=== PATIENT | female | born 1990 | race American Indian/Alaskan Native ===

== ENCOUNTER 2016-08-01 22:19 | Emergency (ER) | payer MEDICAID ==
[2016-08-01 22:38] VITALS: BP 132/71
[2016-08-01 23:11] LABS: Basophils % (Auto) 0.2 % (0.0-1.8); Eosinophils % (Auto) 1.3 % (0.0-4.3); Hematocrit 36.4 % (30.3-42.9); Hemoglobin 11.7 gm/dl (10.1-14.3); Mean Corpuscular HGB Conc 32 % (30-34); Mean Corpuscular Volume 76 fl (79-97); Platelet Count 231 K/mm3 (140-440); Red Blood Count 4.77 M/mm3 (3.65-5.03); Red Cell Distribution Width 15.6 % (13.2-15.2); White Blood Count 10.6 K/mm3 (4.5-11.0)
[2016-08-01 23:22] LABS: Mean Corpuscular Hemoglobin 25 pg (28-32)
[2016-08-01 23:28] LABS: Alanine Aminotransferase 10 units/L (7-56); Albumin 4.4 g/dL (3.9-5); Albumin/Globulin Ratio 1.1 %; Alkaline Phosphatase 75 units/L (35-129); Anion Gap 19 mmol/L; BUN/Creatinine Ratio 23.75; Bilirubin,Total 0.2 mg/dL (0.1-1.2); Blood Urea Nitrogen 19 mg/dL (7-17); Calcium 9.6 mg/dL (8.4-10.2); Carbon Dioxide 25 mmol/L (22-30); Chloride 100.4 mmol/L (98-107); Glucose 87 mg/dL (65-100); Lipase 26 units/L (13-60); Sodium 140 mmol/L (137-145); Total Protein 8.5 g/dL (6.3-8.2)
[2016-08-02 00:10] LABS: Bilirubin,Urine NEG (Negative); Blood,Urine NEG (Negative); Ketones,Urine NEG (Negative); Leukocyte Esterase,Urine NEG (Negative); Nitrite,Urine NEG (Negative); Protein,Urine <15 mg/dL mg/dL (Negative); Urobilinogen,Urine < 2.0 mg/dL (<2.0)
[2016-08-02 00:11] LABS: Mucus,Urine 1+ /HPF; RBC,Urine < 1.0 /HPF (0.0-6.0)
--- NOTE | 2016-08-02 19:30 | ED Elopement Review ---
ED Pt Elopement review - Results review Lab results: Laboratory Tests 08/01/16 08/01/16 08/01/16 22:54 22:54 22:54 WBC 10.6 RBC 4.77 Hgb 11.7 Hct 36.4 MCV 76 L MCH 25 L MCHC 32 RDW 15.6 H Plt Count 231 Lymph % (Auto) 32.2 [place] % (Auto) 6.7 Eos % (Auto) 1.3 Baso % (Auto) 0.2 Lymph # 3.4 [place] # 0.7 Eos # 0.1 Baso # 0.0 Seg Neutrophils % 59.6 Seg Neutrophils # 6.3 Sodium 140 Potassium 4.0 Chloride 100.4 Carbon Dioxide 25 Anion Gap 19 BUN 19 H Creatinine 0.8 Estimated GFR > 60 BUN/Creatinine Ratio 23.75 Glucose 87 Calcium 9.6 Total Bilirubin 0.2 AST 15 ALT 10 Alkaline Phosphatase 75 Total Protein 8.5 H Albumin 4.4 Albumin/Globulin Ratio 1.1 Lipase 26 HCG, Qual Negative Urine Color Urine Turbidity Urine pH Ur Specific [place] Urine Protein Urine Glucose (UA) Urine Ketones Urine Blood Urine Nitrite Urine Bilirubin Urine Urobilinogen Ur Leukocyte Esterase Urine WBC (Auto) Urine RBC (Auto) U Epithel Cells (Auto) Urine Mucus 08/01/16 23:39 WBC RBC Hgb Hct MCV MCH MCHC RDW Plt Count Lymph % (Auto) [place] % (Auto) Eos % (Auto) Baso % (Auto) Lymph # [place] # Eos # Baso # Seg Neutrophils % Seg Neutrophils # Sodium Potassium Chloride Carbon Dioxide Anion Gap BUN Creatinine Estimated GFR BUN/Creatinine Ratio Glucose Calcium Total Bilirubin AST ALT Alkaline Phosphatase Total Protein Albumin Albumin/Globulin Ratio Lipase HCG, Qual Urine Color Yellow Urine Turbidity Clear Urine pH 5.0 Ur Specific [place] 1.029 Urine Protein <15 mg/dl Urine Glucose (UA) Neg Urine Ketones Neg Urine Blood Neg Urine Nitrite Neg Urine Bilirubin Neg Urine Urobilinogen < 2.0 Ur Leukocyte Esterase Neg Urine WBC (Auto) 1.0 Urine RBC (Auto) < 1.0 U Epithel Cells (Auto) 8.0 Urine Mucus 1+ - Call Back decision Pt Call Back Decision: No action required
== END 2016-08-02 05:40 | disposition left against medical advice (07) ==
LOC: ED 22:19
DX: R11.10 Vomiting, unspecified (principal); R42 Dizziness and giddiness; Z53.21 Procedure and treatment not carried out due to patient leaving prior to being seen by health care provider
CPT/HCPCS: 36415; 80053; 81001; 83690; 84703; 85025

== ENCOUNTER 2017-01-24 23:58 | Emergency (ER) | payer MEDICAID ==
[2017-01-25 00:37] VITALS: BP 110/64
[2017-01-25 06:19] LABS: Bacteria,Urine 2+ /HPF (Negative); Bilirubin,Urine NEG (Negative); Blood,Urine MOD (Negative); Ketones,Urine NEG (Negative); Leukocyte Esterase,Urine LG (Negative); Mucus,Urine 3+ /HPF; Nitrite,Urine NEG (Negative); Urobilinogen,Urine < 2.0 mg/dL (<2.0)
[2017-01-25] MEDS ORDERED: TYLENOL PO ONE (08:02)
[2017-01-25] MEDS ORDERED: AUGMENTIN 875 MG PO ONE (08:02)
--- NOTE | 2017-01-25 08:08 | Emergency Department Report ---
HPI - General Chief Complaint: Urogenital-Female Time Seen by Provider: 01/25/17 07:25 - HPI HPI: Patient is a 26-year-old female who presents to the ED approximately 27 weeks complaining of pain to the right side of her vaginal area. Patient states a couple of days ago she noticed some swelling of her vaginal area on the right side. Patient states vagina labia has painful since then. Patient states she started to notice of yellowish puslike discharge from the right labia yesterday. Patient states she is soaking in warm baths and that seems to make it a bit better. She states she follows up with [facility] out of [facility] for care. She reports good movement, no vaginal bleeding or leaking any palpitations with the She denies vaginal discharge, vaginal itching, dysuria, vaginal bleeding, leaking fluids, fever, abdominal pain, chest pain or any other problems ED Past Medical Hx - Past Medical History Previous Medical History?: Yes Hx GERD: Yes Hx Psychiatric Treatment: Yes (depression) - Surgical History Additional Surgical History: HEART SURGERY to repair hole in heart as child. - Social History Smoking Status: Never Smoker Substance Use Type: None - Medications Home Medications: Home Medications Medication Instructions Recorded Confirmed Last Taken Type Ondansetron [Zofran Oral Liq] 4 mg PO Q8H #50 ml 04/14/16 Unknown Rx Acetaminophen [Acetaminophen 8 650 mg PO TID #30 tablet.er 01/25/17 Unknown Rx Hour] Amoxicillin/K Clav Tab [Augmentin 1 each PO BID #14 tablet 01/25/17 Unknown Rx 875MG TAB] Fluconazole [Diflucan TAB] 150 mg PO ONCE #1 tablet 01/25/17 Unknown Rx ED Review of Systems ROS: Stated complaint: VAGINAL PAIN Other details as noted in HPI Constitutional: denies: chills, fever Eyes: denies: eye pain, eye discharge, vision change ENT: denies: ear pain, throat pain Respiratory: denies: cough, shortness of breath, wheezing Cardiovascular: denies: chest pain, palpitations Endocrine: no symptoms reported Gastrointestinal: denies: abdominal pain, nausea, diarrhea Genitourinary: denies: urgency, dysuria, discharge Musculoskeletal: denies: back pain, joint swelling, arthralgia Skin: denies: rash, lesions Neurological: denies: headache, weakness, paresthesias Psychiatric: denies: anxiety, depression Hematological/Lymphatic: denies: easy bleeding, easy bruising Physical Exam - Physical Exam Vital Signs: Vital Signs 01/25/17 00:33 Temperature 97.5 F L Pulse Rate 93 H Respiratory 17 Rate Blood Pressure 110/64 O2 Sat by Pulse 98 Oximetry Physical Exam: GENERAL: Alert and oriented x3, no apparent distress, Normal Gait, atraumatic. HEAD: Head is normocephalic and a-traumatic. EYES: Extra ocular muscles are intact. Pupils are equal, round, and reactive to light and accommodation. LUNGS: Symetrical with respiration, No wheezing, no rales or crackles, CTAB. HEART: S1, S2 present, regular rate and rhythm without murmur, no rubs, no gallops. Non tender to palpation ABDOMEN: No organomegaly was noted,Positive bowel sounds, soft, and non- distended. . Nontender to palpation on all Quadrants, NO CVA tenderness. GENITOURINARY: Right sided labial enlargement, erythematous, tender to palpation , training for an open abscess. Vaginal vault is without discharge. Cervix is of normal color without lesion. Cervical os is closed. No bleeding noted. Uterus is noted to be of normal size and nontender. No cervical motion tenderness. No masses are palpated. The adnexa are without masses or tenderness. EXTREMITIES/MUSCULOSKELETAL: No cyanosis, clubbing, rash, lesions or edema. Full ROM bilaterally. UE/LE Pulses 2+ bilaterally. NEUROLOGIC: The patient is cooperative with no focal neurologic deficits. Cranial nerves II through XII are grossly intact. Normal speech. PSYCHIATRIC: Mood is congruent with affect, denies suicidal or homicidal ideations. SKIN: Warm and dry, No lesions, No ulceration or induration present. ED Course Vital Signs 01/25/17 00:33 Temperature 97.5 F L Pulse Rate 93 H Respiratory 17 Rate Blood Pressure 110/64 O2 Sat by Pulse 98 Oximetry ED Medical Decision Making - Medical Decision Making 26-year-old female presents with labia cellulitis/urine tract infection ED course: Urinalysis ordered. Urinalysis positive for bacteria, yeast, white blood cells Discussed his findings with the patient. Discussed with patient to make sure she follows up. Patient is alert and asked 3 has no neuro deficit. Right labia had been drained. Nonfluctuant. Wound was cleaned and sterilely draped Discussed patient warm sitz bath daily, discussed follow-up with [facility] at [place] Vital signs are normal patient is in no acute distress. Patient understands all instructions given. Critical care attestation.: If time is entered above; I have spent that time in minutes in the direct care of this critically ill patient, excluding procedure time. ED Disposition Clinical Impression: Cellulitis of labia majora UTI (urinary tract infection) Qualifiers: Urinary tract infection type: acute cystitis Hematuria presence: with hematuria Qualified Code(s): N30.01 - Acute cystitis with hematuria Disposition: TO HOME OR SELFCARE Is pt being admited?: No Does the pt Need Aspirin: No Condition: Stable Instructions: Urinary Tract Infection in Women (ED), Abscess Incision and Drainage (ED), Vaginitis (ED), Abscess (ED), Heat Pack Application (ED) Additional Instructions: Follow-up with your [facility] doctor at [place] Continue sitz baths as discussed Take antibiotics is discussed Prescriptions: Acetaminophen [Acetaminophen 8 Hour] 650 mg PO TID #30 tablet.er Amoxicillin/K Clav Tab [Augmentin 875MG TAB] 1 each PO BID #14 tablet Fluconazole [Diflucan TAB] 150 mg PO ONCE #1 tablet Referrals: PRIMARY CARE, [Primary Care Provider] - 3-5 Days Forms: Work/School Release Form(ED) Time of Disposition: 08:16
== END 2017-01-25 08:32 | disposition home or self-care (01) ==
LOC: ED 23:58
DX: O23.592 Infection of other part of genital tract in pregnancy, second trimester (principal); N76.2 Acute vulvitis; Z3A.27 27 weeks gestation of pregnancy; N30.01 Acute cystitis with hematuria; K21.9 Gastro-esophageal reflux disease without esophagitis; F32.9 Major depressive disorder, single episode, unspecified
CPT/HCPCS: 81001; 99284

== ENCOUNTER 2018-11-03 05:59 | Observation (INO) | payer MEDICAID ==
[2018-11-03] MEDS ORDERED: LACTATED RINGERS 1,000 ML ONE (06:15)
[2018-11-03 08:01] LABS: Bilirubin,Urine NEG (Negative); Blood,Urine NEG (Negative); Color,Urine Yellow (Yellow); Protein,Urine <15 mg/dL mg/dL (Negative); Urobilinogen,Urine < 2.0 mg/dL (<2.0)
[2018-11-03] MEDS ORDERED: AMPICILLIN 2 GM in NACL 0.9% 50 ML IV ONE (08:15)
--- NOTE | 2018-11-03 08:33 | History and Physical Report ---
History of Present Illness Date of examination: 11/03/18 Date of admission: 11/03/2018 Chief complaint: low abdominal pains,x 3days, vomiting, diarrhea, frequent urination. History of present illness: by c/section currently at 32+4wks gestation.Poor historian but was able to say she had been going to void a lot within the recent past and each time she will move her bowels also. She had also been vomiting. Unable to say if she had fevers or chills. Past History Past Medical History: heart disease (had heart surgery during her childhood.) Past Surgical History: other (Umbilical herniorrhaphy, heart surgery.) Social history: denies: smoking, alcohol abuse - Obstetrical History Expected Date of Delivery: 12/24/18 Actual Gestation: 32 Week(s) 5 Day(s) : 2 Para: 1 Medications and Allergies Allergies Allergy/AdvReac Type Severity Reaction Status Date / Time No Known Allergies Allergy Verified 08/28/15 12:54 Home Medications Medication Instructions Recorded Confirmed Last Taken Type Ondansetron [Zofran Oral Liq] 4 mg PO Q8H #50 ml 04/14/16 Unknown Rx Acetaminophen [Acetaminophen 8 650 mg PO TID #30 tablet.er 01/25/17 Unknown Rx Hour] Amoxicillin/K Clav Tab [Augmentin 1 each PO BID #14 tablet 01/25/17 Unknown Rx 875MG TAB] Fluconazole [Diflucan TAB] 150 mg PO ONCE #1 tablet 01/25/17 Unknown Rx Active Meds: Active Medications Ampicillin Sodium 2 gm/ Sodium (Chloride) 50 mls @ 200 mls/hr IV ONCE ONE Stop: 11/03/18 08:29 Ampicillin Sodium (Ampicillin/Ns 1 Gm/50 Ml) 1 gm in 50 mls @ 100 mls/hr IV Q4HR [facility]; Protocol Review of Systems All systems: negative Gastrointestinal: vomiting, diarrhea Genitourinary: pelvic pain, no vaginal bleeding Rectal Exam: deferred Integumentary: no rash, no lesions - Vital Signs Vital signs: Vital Signs Pulse Pulse Ox 73 100 11/03/18 06:11 11/03/18 06:11 Temp Pulse Resp BP Pulse Ox 66 99/58 100 11/03/18 08:24 11/03/18 07:31 11/03/18 08:24 - Physical Exam Breasts: Positive: deferred Cardiovascular: Regular rate Lungs: Positive: Clear to auscultation Abdomen: Positive: normal appearance, distention Uterus: Positive: enlarged. Negative: tender Extremities: Positive: normal - Obstetrical FHR: category 1 Results All other labs normal. Assessment and Plan 32+5wks gestation, x1 c/section. Low abdominal pain. Plan: Admit for obs,stat US to r/o abruption, BPP, IV fluids, cbc,cmp urine cultures, gbs cultures, antibiotics, betamethasone. Consult to [facility] hospitalist for vomiting/diarrhea. - Patient Problems (1) Abdominal pain affecting , antepartum Current Visit: Yes Status: Acute (2) Previous delivery, antepartum Current Visit: Yes Status: Acute (3) Diarrhea Current Visit: Yes Status: Acute (4) Vomiting affecting , antepartum Current Visit: Yes Status: Acute
[2018-11-03] MEDS ORDERED: AMPICILLIN/NS 2 GM/100 ML 2 GM/100 ML BAG IV NR (08:40)
[2018-11-03 08:54] LABS: Albumin 2.9 g/dL (3.9-5); BUN/Creatinine Ratio 8; Blood Urea Nitrogen 5 mg/dL (7-17); Calcium 7.9 mg/dL (8.4-10.2); Hemolysis Index 98
[2018-11-03] MEDS ORDERED: LACTATED RINGERS 1,000 ML IV SCH (09:00)
[2018-11-03 09:23] LABS: Alanine Aminotransferase 9 units/L (7-56)
[2018-11-03 09:26] LABS: Basophils % (Auto) 0.5 % (0.0-1.8); Eosinophils # (Auto) 0.1 K/mm3 (0.0-0.4); Hemoglobin 9.7 gm/dl (10.1-14.3); Lymphocytes # (Auto) 2.3 K/mm3 (1.2-5.4); Lymphocytes % (Auto) 31.1 % (13.4-35.0); Mean Corpuscular HGB Conc 34 % (30-34); Mean Corpuscular Volume 80 fl (79-97); Monocytes # (Auto) 0.8 K/mm3 (0.0-0.8); Monocytes % (Auto) 10.5 % (0.0-7.3); Red Blood Count 3.65 M/mm3 (3.65-5.03); Red Cell Distribution Width 14.2 % (13.2-15.2)
[2018-11-03] MEDS ORDERED: AMPICILLIN/NS 2 GM/100 ML 2 GM/100 ML BAG IV ONE (09:30)
[2018-11-03] MEDS ORDERED: TYLENOL PO PRN (09:30)
[2018-11-03] MEDS ORDERED: COLACE PO PRN (09:30)
[2018-11-03] MEDS: PRENATAL VITAMIN PO SCH (09:31)
--- NOTE | 2018-11-03 09:34 | Ultrasound Report ---
ULTRASOUND BIOPHYSICAL PROFILE: History: Pain, unknown etiology Technique: Transabdominal ultrasound with Doppler interrogation. 2 - breathing movements 2 - movements 2 - posture and tone 2 - Qualitative amniotic fluid volume 8 - TOTAL SCORE OF POSSIBLE 8 Heart Rate (bpm)
--- NOTE | 2018-11-03 09:42 | Ultrasound Report ---
ULTRASOUND ABDOMEN COMPLETE: TECHNIQUE: Transabdominal ultrasound with color Doppler interrogation. HISTORY: labor, abdominal pain. COMPARISON: none. FINDINGS: LIVER: Normal. BILIARY SYSTEM: Normal. PANCREAS: Normal. SPLEEN: Normal. KIDNEYS: Normal. AORTA/IVC: Normal. ASCITES: None. IMPRESSION: Unremarkable exam.
[2018-11-03] MEDS ORDERED: DIFLUCAN PO ONE (09:51)
[2018-11-03 10:29] LABS: Platelet Count 173 K/mm3 (140-440)
--- NOTE | 2018-11-03 11:45 | Consultation ---
History of Present Illness Consult date: 11/03/18 Requesting physician: KANDICE WU Reason for consult: contractions History of present illness: o Date of Consult: November 03, 2018 o Patient Name: KATHLEEN BARBER (: 89 ) o Consulting Physician: Lucio Delarosa M.D. o Admitting Physicians: Dr. Javier reyes Admission Diagnosis: IUP at 32 weeks. Rule out urinary tract infection. Rule out labor As you are aware, this is a 28 year old para 1001 at EGA= 32.5 weeks (based on an AKIN of 12/25/18) gestation who was admitted to [facility] with contractions and suspected labor. The patient presented with abdominal pain. Her UTI was suggestive of a possible urinary tract infection. At the time of my evaluation, the patient denied vaginal bleeding. Since admission, uterine tocodynametry has been significant for mild episodes of irritability and mild contractile activity at irregular intervals. l PAST OB HISTORY: o See full report in patients chart o 2017: CS at term. BW: 5 pounds. l PAST MEDICAL HISTORY: DVT in 2017. l Physical Examination: l See hospital chart for details l General exam: WDWN, NAD. l Abdominal exam: soft, non-tender, non-distended, bowel sounds: normal. l NST reactive, no decelerations, (+) irregular uterine activity l Cervico-vaginal exam: DEFERRED. See notes in patient's chart. ULTRASOUND: Pending. Past History Past Medical History: heart disease (had heart surgery during her childhood.) Past Surgical History: other (Umbilical herniorrhaphy, heart surgery.) - Obstetrical History : 2 Medications and Allergies Allergies Allergy/AdvReac Type Severity Reaction Status Date / Time No Known Allergies Allergy Verified 08/28/15 12:54 Home Medications Medication Instructions Recorded Confirmed Last Taken Type Ondansetron [Zofran Oral Liq] 4 mg PO Q8H #50 ml 04/14/16 Unknown Rx Acetaminophen [Acetaminophen 8 650 mg PO TID #30 tablet.er 01/25/17 Unknown Rx Hour] Amoxicillin/K Clav Tab [Augmentin 1 each PO BID #14 tablet 01/25/17 Unknown Rx 875MG TAB] Fluconazole [Diflucan TAB] 150 mg PO ONCE #1 tablet 01/25/17 Unknown Rx Active Meds: Active Medications Acetaminophen (Tylenol) 650 mg PO Q4H PRN PRN Reason: Pain MILD(1-3)/Fever >100.5/MCGILL Docusate Sodium (Colace) 100 mg PO Q12H PRN PRN Reason: Constipation Ampicillin Sodium (Ampicillin/Ns 1 Gm/50 Ml) 1 gm in 50 mls @ 100 mls/hr IV Q4H [facility]; Protocol Lactated Ringer's (Lactated Ringers) 1,000 mls @ 125 mls/hr IV DIRECT [facility] Multivitamins/Iron/Calcium ( Vitamin) 1 each PO QDAY [facility] Last Admin: 11/03/18 09:31 Dose: Not Given Documented by: - Vital Signs Vital signs: Vital Signs Pulse Pulse Ox 73 100 11/03/18 06:11 11/03/18 06:11 Temp Pulse Resp BP Pulse Ox 78 99/58 98 11/03/18 10:04 11/03/18 07:31 11/03/18 10:04 Results Result Diagrams: 11/03/18 08:15 11/03/18 08:15 Abnormal lab results 11/03/18 11/03/18 Range/Units 08:15 08:15 Hgb 9.7 L (10.1-14.3) gm/dl Hct 29.0 L (30.3-42.9) % MCH 27 L (28-32) pg [place] % (Auto) 10.5 H (0.0-7.3) % BUN 5 L (7-17) mg/dL Creatinine 0.6 L (0.7-1.2) mg/dL Calcium 7.9 L (8.4-10.2) mg/dL Albumin 2.9 L (3.9-5) g/dL All other labs normal. Assessment and Plan ASSESSMENT: * IUP at 32.5 weeks gestation admitted due cervical shortening, dilation and symptoms of labor. * Rule out UTI * Currently, an analysis of this patients symptoms, tocodynametry, recent history place her at increased risk for spontaneous in the near future. RECOMMENDATIONS: * We are in agreement with close observation to rule out progressive contractions or early labor. * Follow-up the results of her urinalysis and treat with antibiotics if indicated. * Neonatology aware. * Given the current gestational age you may wish to consider steroids to enhance lung maturity. * We would give magnesium sulfate to obtain steroids for lung maturation. * I would, however, discontinue Procardia and prepare for if this patient shows continued contractions and/or cervical change while on Procardia. * Please obtain testing to rule out the possibility of a urinary tract infection * Kindly contact [facility] as needed if her clinical status changes. Thank you for allowing us to participate in the care of this patient. We look forward to the opportunity to assist in her continued management. If you have any questions, we may be reached at [phone]. Lucio Delarosa MD, FACOG
[2018-11-03] MEDS: AMPICILLIN/NS 1 GM/50 ML 1 GM/50 ML BAG IV SCH ×2 (13:20→17:14)
--- NOTE | 2018-11-03 15:01 | Consultation ---
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 She also has thrombus on the VSD patch seen by echocardiogram in October 2016. Patient usually receives her care at [facility] and has been recommended for lifelong anticoagulation. Patient presented with complaints of low abdominal pain, admitted for further evaluation. Patient denies chest pain, unusual shortness of breath and she has no lower extremity edema. there is no ECG available for review. A cardiac consultation has been requested due to history of congenital heart disease. Past History Social history: denies: smoking, alcohol abuse Medications and Allergies Allergies Allergy/AdvReac Type Severity Reaction Status Date / Time No Known Allergies Allergy Verified 08/28/15 12:54 Home Medications Medication Instructions Recorded Confirmed Last Taken Type Ondansetron [Zofran Oral Liq] 4 mg PO Q8H #50 ml 04/14/16 Unknown Rx Acetaminophen [Acetaminophen 8 650 mg PO TID #30 tablet.er 01/25/17 Unknown Rx Hour] Amoxicillin/K Clav Tab [Augmentin 1 each PO BID #14 tablet 01/25/17 Unknown Rx 875MG TAB] Fluconazole [Diflucan TAB] 150 mg PO ONCE #1 tablet 01/25/17 Unknown Rx Active Meds: Active Medications Acetaminophen (Tylenol) 650 mg PO Q4H PRN PRN Reason: Pain MILD(1-3)/Fever >100.5/MCGILL Docusate Sodium (Colace) 100 mg PO Q12H PRN PRN Reason: Constipation Ampicillin Sodium (Ampicillin/Ns 1 Gm/50 Ml) 1 gm in 50 mls @ 100 mls/hr IV Q4H [facility]; Protocol Last Admin: 11/03/18 13:20 Dose: 100 mls/hr Documented by: Lactated Ringer's (Lactated Ringers) 1,000 mls @ 125 mls/hr IV DIRECT [facility] Last Admin: 11/03/18 12:15 Dose: 125 mls/hr Documented by: Multivitamins/Iron/Calcium ( Vitamin) 1 each PO QDAY [facility] Last Admin: 11/03/18 09:31 Dose: Not Given Documented by: Physical Examination Vital Signs Pulse Pulse Ox 73 100 11/03/18 06:11 11/03/18 06:11 General appearance: no acute distress HEENT: Positive: PERRL Neck: Positive: trachea midline Cardiac: Positive: Reg Rate and Rhythm Lungs: Positive: Decreased Breath Sounds Neuro: Positive: Grossly Intact Extremities: Absent: edema Results 11/03/18 08:15 11/03/18 08:15 Cardiac Enzymes 11/03/18 Range/Units 08:15 AST 20 (5-40) units/L CBC 11/03/18 Range/Units 08:15 WBC 7.4 (4.5-11.0) K/mm3 RBC 3.65 (3.65-5.03) M/mm3 Hgb 9.7 L (10.1-14.3) gm/dl Hct 29.0 L (30.3-42.9) % Plt Count 173 (140-440) K/mm3 Lymph # 2.3 (1.2-5.4) K/mm3 [place] # 0.8 (0.0-0.8) K/mm3 Eos # 0.1 (0.0-0.4) K/mm3 Baso # 0.0 (0.0-0.1) K/mm3 Comprehensive Metabolic Panel 11/03/18 Range/Units 08:15 Sodium 137 (137-145) mmol/L Potassium 4.0 (3.6-5.0) mmol/L Chloride 103.3 (98-107) mmol/L Carbon Dioxide 22 (22-30) mmol/L BUN 5 L (7-17) mg/dL Creatinine 0.6 L (0.7-1.2) mg/dL Glucose 75 (65-100) mg/dL Calcium 7.9 L (8.4-10.2) mg/dL AST 20 (5-40) units/L ALT 9 (7-56) units/L Alkaline Phosphatase 63 (35-129) units/L Total Protein 6.4 (6.3-8.2) g/dL Albumin 2.9 L (3.9-5) g/dL Assessment and Plan Abdominal pain Congenital heart disease TOF repair in 1997 while living in [place] Hx of VSD thrombus seen on echo at [place] 10/2016 recommended for lifelong anticoagulation 32 weeks gestation Plan: We will obtain a 12 lead ECG for review. Otherwise, conservative cardiac management.
[2018-11-03 19:20] LABS: Amphetamine Screen,Urine PRESUMPTIVE NEGATIVE; Benzodiazepines Screen,Urine PRESUMPTIVE NEGATIVE; Cannabinoid Screen,Urine PRESUMPTIVE NEGATIVE; Cocaine Screen,Urine PRESUMPTIVE NEGATIVE; Methadone Screen,Urine PRESUMPTIVE NEGATIVE; Opiate Screen,Urine PRESUMPTIVE NEGATIVE
[2018-11-04] MEDS: AMPICILLIN/NS 1 GM/50 ML 1 GM/50 ML BAG IV SCH ×4 (00:33→10:52)
--- NOTE | 2018-11-04 07:20 | Consultation ---
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 She also has thrombus on the VSD patch seen by echocardiogram in October 2016. Patient usually receives her care at [facility] and has been recommended lifelong anticoagulation. Patient presented with complaints of low abdominal pain, admitted for further evaluation. Patient denies chest pain, unusual shortness of breath and she has no lower extremity edema. Past History Past Medical History: other (Tetralogy og Fallot,VSD patch thrombus) Past Surgical History: Other (TOF repair) Social history: denies: smoking, alcohol abuse Family history: hypertension Medications and Allergies Allergies Allergy/AdvReac Type Severity Reaction Status Date / Time No Known Allergies Allergy Verified 08/28/15 12:54 Home Medications Medication Instructions Recorded Confirmed Last Taken Type Ondansetron [Zofran Oral Liq] 4 mg PO Q8H #50 ml 04/14/16 11/03/18 1 Month Ago Rx ~10/03/18 Acetaminophen [Acetaminophen 8 650 mg PO TID #30 tablet.er 01/25/17 11/03/18 Unknown Rx Hour] Amoxicillin/K Clav Tab [Augmentin 1 each PO BID #14 tablet 01/25/17 11/03/18 Unknown Rx 875MG TAB] Fluconazole [Diflucan TAB] 150 mg PO ONCE #1 tablet 01/25/17 11/03/18 Unknown Rx Enoxaparin [Lovenox] 100 mg SQ Q12HR 11/03/18 11/03/18 1 Month Ago History ~10/03/18 No.144/Folic Acid [[facility] 1 tab PO QDAY 11/03/18 11/03/18 1 Month Ago History Gummies] ~10/03/18 Active Meds: Active Medications Acetaminophen (Tylenol) 650 mg PO Q4H PRN PRN Reason: Pain MILD(1-3)/Fever >100.5/MCGILL Docusate Sodium (Colace) 100 mg PO Q12H PRN PRN Reason: Constipation Ampicillin Sodium (Ampicillin/Ns 1 Gm/50 Ml) 1 gm in 50 mls @ 100 mls/hr IV Q4H [facility]; Protocol Last Admin: 11/04/18 05:40 Dose: 100 mls/hr Documented by: Lactated Ringer's (Lactated Ringers) 1,000 mls @ 125 mls/hr IV DIRECT [facility] Last Admin: 11/03/18 12:15 Dose: 125 mls/hr Documented by: Multivitamins/Iron/Calcium ( Vitamin) 1 each PO QDAY [facility] Last Admin: 11/03/18 09:31 Dose: Not Given Documented by: Review of Systems All systems: negative Gastrointestinal: abdominal pain Exam - Constitutional Vitals: Temp Pulse Resp BP Pulse Ox 97.9 F 72 18 112/68 99 11/03/18 20:45 11/03/18 20:45 11/03/18 20:45 11/03/18 20:45 11/03/18 16:01 General appearance: Present: no acute distress, well-nourished - EENT Eyes: Present: PERRL ENT: hearing intact, clear oral mucosa - Neck Neck: Present: supple, normal ROM - Respiratory Respiratory effort: normal Respiratory: bilateral: CTA - Cardiovascular Heart rate: 78 Rhythm: regular Heart Sounds: Present: S1 & S2. Absent: rub, click - Extremities Extremities: no ischemia, pulses intact, pulses symmetrical, No edema Peripheral Pulses: within normal limits - Abdominal General gastrointestinal: Present: soft, non-tender, non-distended, normal bowel sounds Female genitourinary: Present: normal - Integumentary Integumentary: Present: clear, warm, dry - Musculoskeletal Musculoskeletal: gait normal, strength equal bilaterally - Psychiatric Psychiatric: appropriate mood/affect, intact judgment & insight - Neurologic Neurologic: CNII-XII intact, moves all extremities Results - Labs CBC & Chem 7: 11/03/18 08:15 11/03/18 08:15 Labs: Abnormal lab results 11/03/18 11/03/18 Range/Units 08:15 08:15 Hgb 9.7 L (10.1-14.3) gm/dl Hct 29.0 L (30.3-42.9) % MCH 27 L (28-32) pg [place] % (Auto) 10.5 H (0.0-7.3) % BUN 5 L (7-17) mg/dL Creatinine 0.6 L (0.7-1.2) mg/dL Calcium 7.9 L (8.4-10.2) mg/dL Albumin 2.9 L (3.9-5) g/dL ULTRASOUND BIOPHYSICAL PROFILE: History: Pain, unknown etiology Technique: Transabdominal ultrasound with Doppler interrogation. 2 - breathing movements 2 - movements 2 - posture and tone 2 - Qualitative amniotic fluid volume 8 - TOTAL SCORE OF POSSIBLE 8 Heart Rate (bpm) Assessment and Plan - Patient Problems (1) Abdominal pain affecting , antepartum Current Visit: Yes Status: Acute Plan to address problem: Non specific Symptomatic treatment Sec to Nothing Surgical/Medical (2) TOF (tetralogy of Fallot) Current Visit: Yes Status: Chronic Plan to address problem: Patient on Lovenox lifelong Follow up with [place] Will sign off Call us if necessary
--- NOTE | 2018-11-04 09:34 | Progress Note ---
Assessment and Plan - Patient Problems (1) Abdominal pain affecting , antepartum Current Visit: Yes Status: Acute Plan to address problem: Patient's US report did not include a categorical statement on the integrity of the placenta and uterine wall: Either new studies needed or prior images reviewed to see if these questions can be answered. When patient is without any more complaints, I will reconsider discharge home. (2) Previous delivery, antepartum Current Visit: Yes Status: Acute (3) Diarrhea Current Visit: Yes Status: Acute (4) Vomiting affecting , antepartum Current Visit: Yes Status: Acute (5) History of thrombosis Current Visit: Yes Status: Acute Plan to address problem: Patient needs to restart her lovenox. Cardiology will be recontacted Subjective - Subjective Date of service: 11/04/18 Principal diagnosis: abdominal pain affecting Interval history: by c/section currently at 32+4wks gestation.Poor historian but was able to say she had been going to void a lot within the recent past and each time she will move her bowels also. She had also been vomiting. Unable to say if she had fevers or chills. Patient reports: movement normal, no new complaints (patient wanting to go home. says she was feeling better. Feels hungry and declined liquid diet. 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 She had a thrombotic episode for which she was ordered to be on lovenox. patient stopped her lovenox october 12, 2018- on her own. Breasts: deferred Lungs: Clear to auscultation Abdomen: Present: normal appearance, soft, distention, normal bowel sounds Uterus: Present: fundal height above umbilicus (soft.) FHR: category 1 Uterine Contraction Pattern: Absent - Labs Labs: Abnormal Labs 11/03/18 11/03/18 08:15 08:15 Hgb 9.7 L Hct 29.0 L MCH 27 L Blair % (Auto) 10.5 H BUN 5 L Creatinine 0.6 L Calcium 7.9 L Albumin 2.9 L Laboratory Results - last 24 hr 11/03/18 11/03/18 11/03/18 08:15 08:15 15:34 Plt Count 173 Urine Opiates Screen Presumptive negative Urine Methadone Screen Presumptive negative Ur Barbiturates Screen Presumptive negative Ur Phencyclidine Scrn Presumptive negative Ur Amphetamines Screen Presumptive negative U Benzodiazepines Scrn Presumptive negative Urine Cocaine Screen Presumptive negative U Marijuana (THC) Screen Presumptive negative Drugs of Abuse Note Disclamer Blood Type O POSITIVE Antibody Screen Negative
[2018-11-04] MEDS: PRENATAL VITAMIN PO SCH (10:52)
[2018-11-04 11:30] VITALS: BP 125/72
[2018-11-04] MEDS ORDERED: LOVENOX SUB-Q SCH (12:00)
--- NOTE | 2018-11-04 12:03 | Ultrasound Report ---
ULTRASOUND OB LIMITED History: Abdominal pain, evaluate placenta Technique: Transabdominal ultrasound with Doppler interrogation. Gestation: Single Position: Cephalic Placenta: Anterior Placental Grade: 2 No evidence for abruption. Heart Rate: 147 BPM
== END 2018-11-04 12:00 | disposition home or self-care (01) ==
LOC: TRG 05:59 → LD 06:01 → TRG 09:25 → LD 09:26
PROVIDERS: ADMIT Obstetrics & Gynecology; ATTEND Obstetrics & Gynecology
DX: O26.893 Other specified pregnancy related conditions, third trimester (principal); R10.30 Lower abdominal pain, unspecified; O21.2 Late vomiting of pregnancy; R35.0 Frequency of micturition; R19.7 Diarrhea, unspecified; Z3A.32 32 weeks gestation of pregnancy
CPT/HCPCS: 36415; 76700; 76815; 76819; 80053; 80307; 81001; 85025; 86850; 86900; 86901; 87086; 87116; 93005; 93010; 96365; 96366; 96372; G0378; J0290; J1650; J7120; 96361

== ENCOUNTER 2018-11-24 22:04 | Emergency (ER) | payer MEDICAID ==
[2018-11-24] MEDS ORDERED: KEFLEX PO ONE (23:05)
[2018-11-24] MEDS ORDERED: ZOFRAN ODT PO ONE (23:05)
[2018-11-24] MEDS ORDERED: TYLENOL PO ONE (23:05)
--- NOTE | 2018-11-24 23:10 | Emergency Department Report ---
Abscess Boil HPI - HPI Chief Complaint: Skin/Abscess/Foreign Body Stated Complaint: BOIL Time Seen by Provider: 11/24/18 22:50 Duration: >1 Week Location: Abdomen (suprapubic) History: Yes Pain, Yes Purulent Drainage, No Fever, No Numbness, No Foreign Body, No Previous History, No Insect Bite HPI: Patient is a A0 and 28-year-old -[place] female who is appro ximately 37 weeks gestation and who presents to the ED with complaint of painful swelling erythematous macular rash on suprapubic area with thick purulent discharge for the last 5 days. Patient states that this pain and the swelling as well as decided has been persistent. Patient denies fever, chills, nausea, vomiting, vaginal bleeding, abdominal pain, traumatic injury or dizziness. Home Medications: Home Medications Medication Instructions Recorded Confirmed Last Taken Enoxaparin [Lovenox] 100 mg SQ Q12HR 11/03/18 11/03/18 1 Month Ago ~10/03/18 No.144/Folic Acid [[facility] 1 tab PO QDAY 11/03/18 11/03/18 1 Month Ago Gummies] ~10/03/18 Previous Rx's Medication Instructions Recorded Last Taken Type Ondansetron [Zofran Oral Liq] 4 mg PO Q8H #50 ml 04/14/16 1 Month Ago Rx ~10/03/18 Acetaminophen [Acetaminophen 8 650 mg PO TID #30 tablet.er 01/25/17 Unknown Rx Hour] Amoxicillin/K Clav Tab [Augmentin 1 each PO BID #14 tablet 01/25/17 Unknown Rx 875MG TAB] Fluconazole [Diflucan TAB] 150 mg PO ONCE #1 tablet 01/25/17 Unknown Rx Acetaminophen [Tylenol] 500 mg PO Q6HR #20 tablet 11/24/18 Unknown Rx cephALEXin [Keflex] 500 mg PO Q6HR #40 capsule 11/24/18 Unknown Rx Allergies/Adverse Reactions: Allergies Allergy/AdvReac Type Severity Reaction Status Date / Time No Known Allergies Allergy Verified 08/28/15 12:54 ED Review of Systems ROS: Stated complaint: BOIL Other details as noted in HPI Constitutional: denies: chills, fever Eyes: denies: eye pain, eye discharge, vision change ENT: denies: ear pain, throat pain Respiratory: denies: cough, shortness of breath, wheezing Cardiovascular: denies: chest pain, palpitations Endocrine: no symptoms reported Gastrointestinal: denies: abdominal pain, nausea, diarrhea Genitourinary: denies: urgency, dysuria, discharge Musculoskeletal: denies: back pain, joint swelling, arthralgia Skin: rash (swollen painful erythematous rash on suprapubic area with purulent discharge), change in color. denies: lesions Neurological: denies: headache, weakness, paresthesias Psychiatric: denies: anxiety, depression Hematological/Lymphatic: denies: easy bleeding, easy bruising ED Past Medical Hx - Past Medical History Previous Medical History?: Yes Hx Hypertension: No Hx CVA: No Hx Heart Attack/AMI: No Hx Congestive Heart Failure: No Hx Diabetes: No Hx Deep Vein Thrombosis: No Hx Pulmonary Embolism: No Hx GERD: Yes Hx Liver Disease: No Hx Renal Disease: No Hx of Cancer: No Hx Sickle Cell Disease: No Hx Arthritis: No Hx Headaches / Migraines: No Hx Seizures: No Hx Kidney Stones: No Hx Psychiatric Treatment: Yes (depression) Hx Asthma: No Hx COPD: No Hx Tuberculosis: No Hx Dementia: No Hx HIV: No - Surgical History Past Surgical History?: Yes Hx Coronary Stent: No Hx Open Heart Surgery: No Hx Pacemaker: No Hx Internal Defibrillator: No Hx Cholecystectomy: No Hx Appendectomy: No Hx Breast Surgery: No Additional Surgical History: HEART SURGERY to repair hole in heart as child. - Social History Smoking Status: Former Smoker Substance Use Type: None - Medications Home Medications: Home Medications Medication Instructions Recorded Confirmed Last Taken Type Ondansetron [Zofran Oral Liq] 4 mg PO Q8H #50 ml 04/14/16 11/03/18 1 Month Ago Rx ~10/03/18 Acetaminophen [Acetaminophen 8 650 mg PO TID #30 tablet.er 01/25/17 11/03/18 Unknown Rx Hour] Amoxicillin/K Clav Tab [Augmentin 1 each PO BID #14 tablet 01/25/17 11/03/18 Unknown Rx 875MG TAB] Fluconazole [Diflucan TAB] 150 mg PO ONCE #1 tablet 01/25/17 11/03/18 Unknown Rx Enoxaparin [Lovenox] 100 mg SQ Q12HR 11/03/18 11/03/18 1 Month Ago History ~10/03/18 No.144/Folic Acid [[facility] 1 tab PO QDAY 11/03/18 11/03/18 1 Month Ago History Gummies] ~10/03/18 Acetaminophen [Tylenol] 500 mg PO Q6HR #20 tablet 11/24/18 Unknown Rx cephALEXin [Keflex] 500 mg PO Q6HR #40 capsule 11/24/18 Unknown Rx ED Abscess Boil Physical Exam - Exam General: Vital signs noted. No distress. Alert and acting appropriately. Front/Back of Body, Lg (Color): 1 - Swollen erythematous tender rash with purulent discharge Size: 2 cm Exam: Yes Tenderness, Yes Surrounding Cellulites/Erythema, Yes Normal Neurologic Exam, Yes Normal Circulation, No Fluctuance, No Lymphangitis, No Heart Murmur Exam: Physical exam is characterized by swollen and erythematous maculopapular rash with purulent discharge on suprapubic area with tenderness. The rest of the physical exam is unremarkable. ED Course Vital Signs 11/24/18 22:36 Temperature 98.2 F Pulse Rate 83 Respiratory 18 Rate Blood Pressure 106/50 Blood Pressure 106/50 [Right] O2 Sat by Pulse 99 Oximetry - Reevaluation(s) Reevaluation #1: 11/24/18 23:10 Patient is alert and oriented 3 and is not in distress. Patient was treated for pain and given initial oral antibiotics in the ED. Neurovascular and thoroughly with normal saline and dressed appropriately. Patient is sent home on antibiotics and Tylenol and advised to follow-up with [employer] physician in 5-7 days for reevaluation or return to the ED immediately if symptoms get worse. Critical care attestation.: If time is entered above; I have spent that time in minutes in the direct care of this critically ill patient, excluding procedure time. ED Medical Decision Making - Medical Decision Making Patient is alert and oriented 3 and is not in distress. Patient was treated for pain and given initial oral antibiotics in the ED. Neurovascular and thoroughly with normal saline and dressed appropriately. Patient is sent home on antibiotics and Tylenol and advised to follow-up with [employer] physician in 5-7 days for reevaluation or return to the ED immediately if symptoms get worse. - Differential Diagnosis Cellulitis of suprapubic area; Abdominal wall abscess, insect bite ED Disposition Clinical Impression: Abdominal wall cellulitis, Acute folliculitis Disposition: TO HOME OR SELFCARE Is pt being admited?: No Does the pt Need Aspirin: No Condition: Stable Instructions: Cellulitis (ED), Folliculitis (ED) Additional Instructions: Take medications with food, drink plenty of fluids and follow-up with your primary care physician in 7-10 days for reevaluation. Return to the ED immediately if symptoms get worse. Prescriptions: Acetaminophen [Tylenol] 500 mg PO Q6HR #20 tablet cephALEXin [Keflex] 500 mg PO Q6HR #40 capsule Referrals: [facility] [Outside] - 3-5 Days Time of Disposition: 23:12 Print Language: MARSHALLESE
[2018-11-24 23:35] VITALS: BP 109/63
== END 2018-11-24 23:53 | disposition home or self-care (01) ==
LOC: ED 22:04
DX: O26.893 Other specified pregnancy related conditions, third trimester (principal); L03.311 Cellulitis of abdominal wall; L73.9 Follicular disorder, unspecified; K21.9 Gastro-esophageal reflux disease without esophagitis; F32.9 Major depressive disorder, single episode, unspecified; Z87.891 Personal history of nicotine dependence; Z3A.37 37 weeks gestation of pregnancy
CPT/HCPCS: Q0162

== ENCOUNTER 2019-11-24 18:52 | Emergency (ER) | payer SELFPAY ==
[2019-11-24 19:32] VITALS: BP 120/80
[2019-11-24] MEDS ORDERED: IBUPROFEN 800 MG TAB PO ONE (22:51)
[2019-11-24] MEDS ORDERED: CLINDAMYCIN 300 MG CAP PO ONE (22:51)
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
== END 2019-11-24 23:18 | disposition home or self-care (01) ==
LOC: ED 18:52
DX: R59.1 Generalized enlarged lymph nodes (principal); M27.2 Inflammatory conditions of jaws
CPT/HCPCS: 99282

== ENCOUNTER 2020-08-12 17:17 | Emergency (ER) | payer MEDICAID ==
[2020-08-12] MEDS ORDERED: HYDROcodone/ACETAMINOPHEN 5-325 MG TAB PO ONE ×2 (19:00→21:02)
[2020-08-12 20:22] LABS: Alanine Aminotransferase 12 units/L (7-56); Blood Urea Nitrogen 9 mg/dL (7-17); Calcium 9.3 mg/dL (8.4-10.2); Hemolysis Index 306
[2020-08-12 20:29] LABS: BUN/Creatinine Ratio 13
[2020-08-12 20:31] LABS: Hematocrit 37.9 % (30.3-42.9); Hemoglobin 12.2 gm/dl (10.1-14.3); Mean Corpuscular HGB Conc 32 % (30-34); Mean Corpuscular Volume 77 fl (79-97); Platelet Count 175 K/mm3 (140-440); Red Blood Count 4.95 M/mm3 (3.65-5.03); Red Cell Distribution Width 16.7 % (13.2-15.2)
--- NOTE | 2020-08-12 20:36 | Emergency Department Report ---
ED General Adult HPI - General Chief complaint: Chest Pain Stated complaint: CHEST PAIN Time Seen by Provider: 08/12/20 18:59 Source: patient Mode of arrival: Ambulatory Limitations: No Limitations - History of Present Illness Initial comments: Patient is a 30-year-old female presents emergency room with complaints of chest pain that began 3 days ago. Patient states that she has a history of a hole in her heart which she reports she had repair during childhood with open heart surgery. Patient states that she has a keloid overlying the scar. She states over the last few days this region has become painful, erythematous. She denies any abrasions or being bit by anything. She denies any fever, nausea, vomiting, diarrhea, cough, shortness of breath, drainage. No other past medical history. No allergies to medications. - Related Data Home Medications Medication Instructions Recorded Confirmed Last Taken Enoxaparin [Lovenox] 100 mg SQ Q12HR 11/03/18 11/03/18 1 Month Ago ~10/03/18 No.144/Folic Acid [[facility] 1 tab PO QDAY 11/03/18 11/03/18 1 Month Ago Gummies] ~10/03/18 Previous Rx's Medication Instructions Recorded Last Taken Type Ondansetron [Zofran Oral Liq] 4 mg PO Q8H #50 ml 04/14/16 1 Month Ago Rx ~10/03/18 Acetaminophen [Acetaminophen 8 650 mg PO TID #30 tablet.er 01/25/17 Unknown Rx Hour] Amoxicillin/K Clav Tab [Augmentin 1 each PO BID #14 tablet 01/25/17 Unknown Rx 875MG TAB] Fluconazole (Nf) [Diflucan TAB] 150 mg PO ONCE #1 tablet 01/25/17 Unknown Rx Acetaminophen [Tylenol] 500 mg PO Q6HR #20 tablet 11/24/18 Unknown Rx cephALEXin [Keflex] 500 mg PO Q6HR #40 capsule 11/24/18 Unknown Rx Clindamycin [Clindamycin CAP] 300 mg PO Q8H #21 cap 11/24/19 Unknown Rx Ibuprofen [Motrin 800 MG tab] 800 mg PO Q8H PRN #20 tablet 11/24/19 Unknown Rx Acetaminophen/Codeine [Tylenol 1 tab PO Q6H PRN #10 tab 08/12/20 Unknown Rx /Codeine # 3 tab] Ibuprofen [Motrin 600 MG tab] 600 mg PO Q8H PRN #14 tablet 08/12/20 Unknown Rx Sulfamethoxazole/Trimethoprim 1 each PO BID 10 Days #20 tablet 08/12/20 Unknown Rx [Bactrim DS TAB] Allergies Allergy/AdvReac Type Severity Reaction Status Date / Time No Known Allergies Allergy Verified 08/12/20 18:15 ED Review of Systems ROS: Stated complaint: CHEST PAIN Other details as noted in HPI Comment: All other systems reviewed and negative ED Past Medical Hx - Past Medical History Hx Hypertension: No Hx CVA: No Hx Heart Attack/AMI: No Hx Congestive Heart Failure: No Hx Diabetes: No Hx Deep Vein Thrombosis: No Hx Pulmonary Embolism: No Hx GERD: Yes Hx Liver Disease: No Hx Renal Disease: No Hx Sickle Cell Disease: No Hx Arthritis: No Hx Headaches / Migraines: No Hx Seizures: No Hx Kidney Stones: No Hx Psychiatric Treatment: Yes (depression) Hx Asthma: No Hx COPD: No Hx Tuberculosis: No Hx Dementia: No Hx HIV: No - Surgical History Hx Coronary Stent: No Hx Open Heart Surgery: No Hx Pacemaker: No Hx Internal Defibrillator: No Hx Cholecystectomy: No Hx Appendectomy: No Hx Breast Surgery: No Additional Surgical History: HEART SURGERY to repair hole in heart as child. - Social History Smoking Status: Current Every Day Smoker Substance Use Type: Alcohol - Medications Home Medications: Home Medications Medication Instructions Recorded Confirmed Last Taken Type Ondansetron [Zofran Oral Liq] 4 mg PO Q8H #50 ml 04/14/16 11/03/18 1 Month Ago Rx ~10/03/18 Acetaminophen [Acetaminophen 8 650 mg PO TID #30 tablet.er 01/25/17 11/03/18 Unknown Rx Hour] Amoxicillin/K Clav Tab [Augmentin 1 each PO BID #14 tablet 01/25/17 11/03/18 Unk nown Rx 875MG TAB] Fluconazole (Nf) [Diflucan TAB] 150 mg PO ONCE #1 tablet 01/25/17 11/03/18 Unknown Rx Enoxaparin [Lovenox] 100 mg SQ Q12HR 11/03/18 11/03/18 1 Month Ago History ~10/03/18 No.144/Folic Acid [[facility] 1 tab PO QDAY 11/03/18 11/03/18 1 Month Ago History Gummies] ~10/03/18 Acetaminophen [Tylenol] 500 mg PO Q6HR #20 tablet 11/24/18 Unknown Rx cephALEXin [Keflex] 500 mg PO Q6HR #40 capsule 11/24/18 Unknown Rx Clindamycin [Clindamycin CAP] 300 mg PO Q8H #21 cap 11/24/19 Unknown Rx Ibuprofen [Motrin 800 MG tab] 800 mg PO Q8H PRN #20 tablet 11/24/19 Unknown Rx Acetaminophen/Codeine [Tylenol 1 tab PO Q6H PRN #10 tab 08/12/20 Unknown Rx /Codeine # 3 tab] Ibuprofen [Motrin 600 MG tab] 600 mg PO Q8H PRN #14 tablet 08/12/20 Unknown Rx Sulfamethoxazole/Trimethoprim 1 each PO BID 10 Days #20 tablet 08/12/20 Unknown Rx [Bactrim DS TAB] ED Physical Exam - General Limitations: No Limitations General appearance: alert, in no apparent distress - Head Head exam: Present: atraumatic, normocephalic - Eye Eye exam: Present: normal appearance - ENT ENT exam: Present: mucous membranes moist - Respiratory Respiratory exam: Present: normal lung sounds bilaterally, other (there is a hypertrophic scar from a previous sternotomy present to the midline sternum, there is surrounding erythema, increased warmth, no fluctuance, no necrosis, erythema is approximately 1 cm surrounding the keloid). Absent: respiratory distress, wheezes, rales, rhonchi, stridor, accessory muscle use, decreased breath sounds, prolonged expiratory - Cardiovascular Cardiovascular Exam: Present: regular rate, normal rhythm, normal heart sounds. Absent: systolic murmur, diastolic murmur, rubs, gallop - Neurological Exam Neurological exam: Present: alert, oriented X3 - Psychiatric Psychiatric exam: Present: normal affect, normal mood - Skin Skin exam: Present: warm, dry ED Course Vital Signs 08/12/20 18:19 Temperature 99.3 F Pulse Rate 82 Respiratory 20 Rate Blood Pressure 137/86 O2 Sat by Pulse 100 Oximetry ED Medical Decision Making - Lab Data Result diagrams: 08/12/20 19:08 08/12/20 19:08 Lab Results 08/12/20 08/12/20 08/12/20 Range/Units 19:08 19:08 19:08 WBC 9.9 (4.5-11.0) K/mm3 RBC 4.95 (3.65-5.03) M/mm3 Hgb 12.2 (10.1-14.3) gm/dl Hct 37.9 (30.3-42.9) % MCV 77 L (79-97) fl MCH 25 L (28-32) pg MCHC 32 (30-34) % RDW 16.7 H (13.2-15.2) % Plt Count 175 (140-440) K/mm3 Lymph % (Auto) Gig Tender Jack % (Auto) Gig Tender Eos % (Auto) Gig Tender Baso % (Auto) Gig Tender Lymph # (Auto) Gig Tender Jack # (Auto) Gig Tender Eos # (Auto) Gig Tender Baso # (Auto) Gig Tender Seg Neutrophils % Gig Tender Seg Neutrophils # Gig Tender Sodium 138 (137-145) mmol/L Potassium 5.3 H (3.6-5.0) mmol/L Chloride 102.4 (98-107) mmol/L Carbon Dioxide 20 L (22-30) mmol/L Anion Gap 21 mmol/L BUN 9 (7-17) mg/dL Creatinine 0.7 (0.6-1.2) mg/dL Estimated GFR > 60 ml/min BUN/Creatinine Ratio 13 % Glucose 105 H (65-100) mg/dL Lactic Acid 1.30 (0.7-2.0) mmol/L Calcium 9.3 (8.4-10.2) mg/dL Total Bilirubin 0.20 (0.1-1.2) mg/dL AST 33 (5-40) units/L ALT 12 (7-56) units/L Alkaline Phosphatase 80 (35-129) units/L Troponin T < 0.010 (0.00-0.029) ng/mL Total Protein 7.5 (6.3-8.2) g/dL Albumin 4.0 (3.9-5) g/dL Albumin/Globulin Ratio 1.1 % HCG, Qual (Negative) 08/12/20 Range/Units 19:08 WBC (4.5-11.0) K/mm3 RBC (3.65-5.03) M/mm3 Hgb (10.1-14.3) gm/dl Hct (30.3-42.9) % MCV (79-97) fl MCH (28-32) pg MCHC (30-34) % RDW (13.2-15.2) % Plt Count (140-440) K/mm3 Lymph % (Auto) Jack % (Auto) Eos % (Auto) Baso % (Auto) Lymph # (Auto) Jack # (Auto) Eos # (Auto) Baso # (Auto) Seg Neutrophils % Seg Neutrophils # Sodium (137-145) mmol/L Potassium (3.6-5.0) mmol/L Chloride (98-107) mmol/L Carbon Dioxide (22-30) mmol/L Anion Gap mmol/L BUN (7-17) mg/dL Creatinine (0.6-1.2) mg/dL Estimated GFR ml/min BUN/Creatinine Ratio % Glucose (65-100) mg/dL Lactic Acid (0.7-2.0) mmol/L Calcium (8.4-10.2) mg/dL Total Bilirubin (0.1-1.2) mg/dL AST (5-40) units/L ALT (7-56) units/L Alkaline Phosphatase (35-129) units/L Troponin T (0.00-0.029) ng/mL Total Protein (6.3-8.2) g/dL Albumin (3.9-5) g/dL Albumin/Globulin Ratio % HCG, Qual Negative (Negative) - EKG Data EKG shows normal: sinus rhythm Rate: normal - EKG Data 08/12/20 20:36 LAE RBBB LVH no STEMI - Radiology Data Radiology results: report reviewed Ordering Physician: WOLF OAKES Date of Service: 08/12/20 Procedure(s): XR chest routine 2V Accession Number(s): [id number] cc: WOLF OAKES Fluoro Time In Minutes: XR chest routine 2V INDICATION / CLINICAL INFORMATION: Chest pain. COMPARISON: None available. FINDINGS: SUPPORT DEVICES: None. HEART / MEDIASTINUM: Median sternotomy with mild cardiac silhouette enlargement. LUNGS / PLEURA: Lungs are clear. Costophrenic sulci are sharp. No pneumothorax. ADDITIONAL FINDINGS: No significant additional findings. IMPRESSION: 1. No acute findings. Signer Name: Vikas Mcfarlane MD Signed: 08/12/2020 8:50 PM Workstation Name: [id number] Transcribed By: CS Dictated By: Vikas Mcfarlane MD Electronically Authenticated By: Vikas Mcfarlane MD Signed Date/Time: 08/12/202049 DD/ 48 TD/TT: Print - Medical Decision Making Patient is a 30-year-old female presents emergency room with complaints of chest pain that began 3 days ago. Patient states that she has a history of a hole in her heart which she reports she had repair during childhood with open heart surgery. Patient states that she has a keloid overlying the scar. She states over the last few days this region has become painful, erythematous. She denies any abrasions or being bit by anything. She denies any fever, nausea, vomiting, diarrhea, cough, shortness of breath, drainage. No other past medical history. No allergies to medications. Vitals are stable. On exam:there is a hypertrophic scar from a previous sternotomy present to the midline sternum, there is surrounding erythema, increased warmth, no fluctuance, no necrosis, e rythema is approximately 1 cm surrounding the keloid. EKG ordered prior to my examination by triage nurse and shows LVH, left atrial enlargement, RBBB. Given that patient is young and has a previous cardiac surgery, labs ordered and are stable, troponin is negative, cxr with no acute process. It appears patient is having chest wall pain secondary to a keloid with cellulitis. There is no signs of drainable abscess at this time. Patient has no tachycardia, afebrile, no leukocytosis. Patient was given p.o. antibiotic prescription. Advised patient Please take medication as prescribed. Do not drive or operate machinery while taking severe pain medication. Increase your water intake. Follow-up with your primary care doctor. Follow-up with a supervisor finishing department. Return to emergency room for any new or worsening symptoms. Critical care attestation.: If time is entered above; I have spent that time in minutes in the direct care of this critically ill patient, excluding procedure time. ED Disposition Clinical Impression: Chest wall pain, Abnormal EKG Cellulitis Qualifiers: Site of cellulitis: trunk Site of cellulitis of trunk: chest wall Qualified Code(s): L03.313 - Cellulitis of chest wall Disposition: - TO HOME OR SELFCARE Is pt being admited?: No Does the pt Need Aspirin: No Condition: Stable Instructions: Cellulitis, Adult Additional Instructions: Please take medication as prescribed. Do not drive or operate machinery while taking severe pain medication. Increase your water intake. Follow-up with your primary care doctor. Follow-up with a supervisor finishing department. Return to emergency room for any new or worsening symptoms. Prescriptions: Sulfamethoxazole/Trimethoprim [Bactrim DS TAB] 1 each PO BID 10 Days #20 tablet Ibuprofen [Motrin 600 MG tab] 600 mg PO Q8H PRN #14 tablet PRN Reason: Pain Acetaminophen/Codeine [Tylenol /Codeine # 3 tab] 1 tab PO Q6H PRN #10 tab PRN Reason: Pain , Severe (7-10) Referrals: TOM WOMACK MD [Staff Physician] - 2-3 Days [facility] [Provider Group] - 2-3 Days LIS SILVA MD [Staff Physician] - 2-3 Days Time of Disposition: 21:00 Print Language: PASHTO
--- NOTE | 2020-08-12 20:54 | XRay Report ---
XR chest routine 2V INDICATION / CLINICAL INFORMATION: Chest pain. COMPARISON: None available. FINDINGS: SUPPORT DEVICES: None. HEART / MEDIASTINUM: Median sternotomy with mild cardiac silhouette enlargement. LUNGS / PLEURA: Lungs are clear. Costophrenic sulci are sharp. No pneumothorax. ADDITIONAL FINDINGS: No significant additional findings. IMPRESSION: 1. No acute findings. Signer Name: Vikas Mcfarlane MD Signed: 08/12/2020 8:50 PM Workstation Name: [id number]
[2020-08-13 00:17] VITALS: BP 142/80
--- NOTE | 2020-08-16 10:17 | Electrocardiograph Report ---
[facility] Test Date: 2020-08-12 Test Time: 18:26:03 Pat Name: KATHLEEN BARBER Department: Room: Gender: F Shoe Lacer: MIGUEL : 1990 Requested By: MARIAH PINEDA Order Number: [id number] Reading MD: Dipti Menendez Measurements Intervals [place] Rate: 79 P: 47 CT: 171 QRS: 4 QRSD: 163 T: 80 QT: 414 QTc: 476 Interpretive Statements Sinus rhythm Left atrial enlargement Right bundle branch block Left ventricular hypertrophy No previous ECG available for comparison Electronically Signed On 08-16-2020 10:17:25 EDT by Dipti Menendez
== END 2020-08-12 21:30 | disposition home or self-care (01) ==
LOC: ED 17:17
DX: L03.313 Cellulitis of chest wall (principal); R94.31 Abnormal electrocardiogram [ECG] [EKG]; K21.9 Gastro-esophageal reflux disease without esophagitis; F32.9 Major depressive disorder, single episode, unspecified; F17.200 Nicotine dependence, unspecified, uncomplicated; Z79.899 Other long term (current) drug therapy
CPT/HCPCS: 36415; 71046; 80053; 82140; 84484; 84703; 85025; 93005